=== PATIENT | male | born 1955 | race Caucasian/White ===

== ENCOUNTER 2022-11-04 12:01 | Emergency (ER) | payer MEDICARE, SELFPAY ==
[2022-11-04 12:04] VITALS: BP 156/91; PULSE 85; RESP 16; TEMP 36.7; O2SAT 98; BMI 19.6
--- NOTE | 2022-11-04 12:16 | XRR_ITS ---
PROCEDURE INFORMATION: Exam: XR Right Ribs with PA Chest Exam date and time: 11/04/2022 12:20 PM Age: 67 years old Clinical indication: Injury or trauma; Fall; Work related; Rib area; Blunt trauma (contusions or hematomas); Additional info: Right rib pain after fall TECHNIQUE: Imaging protocol: Radiologic exam of the Right ribs with PA chest. Views: 3 views COMPARISON: CR XR chest 2V* [id number] 12/25/2017 10:03 AM FINDINGS: Lungs: Unremarkable. No consolidation. Pleural spaces: Unremarkable. No pleural effusion. No pneumothorax. Heart/Mediastinum: Unremarkable. No cardiomegaly. Bones/joints: Unremarkable. XR/XR ribs RT mn 3V w CXR1V [id number] IMPRESSION: No acute findings.
--- NOTE | 2022-11-04 12:36 | W.ED.FALL ---
HPI - Fall General: Chief Complaint: Fall Stated Complaint: Slip and hurt his right side. Time Seen by Provider: 11/04/22 12:17 History of Present Illness: Patient is a 67-year-old male comes to the ED with right rib pain. Injury occurred 3 days ago. He stepped outside on his porch and went to walk down the steps and slipped on the snow. He fell back and landed on his right side. Since fall he has been having 10 out of 10 right-sided rib pain. He takes [id number] Aleve for pain. Denies any head trauma or loss of consciousness. Pain worsens with certain movements or when he takes a deep breath. Associated symptoms-after fall: Denies abdominal pain, chest pain, headache(s), hematuria or neck pain Review of Systems Const: Denies: fever(s), chills or fatigue Eyes: Denies: change in vision or eye discomfort ENMT: Denies: throat pain, odynophagia, nasal discharge or nasal congestion Card: Denies: chest pain, palpitations, edema, swelling of feet/ankles, dyspnea on exertion or orthopnea Resp: Denies: dyspnea, productive cough or non-productive cough GI: Denies: abdominal pain, nausea, vomiting, diarrhea, constipation or hematochezia : Denies: flank pain, difficulty urinating, dysuria or hematuria Musc: Reports: other (Right-sided rib pain); Denies: neck pain, back pain or extremity swelling Skin/Breast: Denies: rash or new lesions Neuro: Denies: headache(s), numbness in extremities or weakness in extremities [facility] ED PFSH: Medical History No pertinent family history Surgical History No pertinent past surgical history Physical Exam Const: COMMON NORMALS: patient oriented x3 and alert GENERAL APPEARANCE: cooperative HENMT: COMMON NORMALS: normocephalic HEAD & SCALP: normocephalic MOUTH: Normal oral and palatal mucosa present THROAT: posterior oropharynx normal and uvula midline Neck/C-Spine: COMMON NORMALS: supple GENERAL: Yes normal visual inspection Chest: CHEST: Yes tenderness rib right posterior-axillary line involving the 7th rib, involving the 8th rib and involving the 9th rib Resp: COMMON NORMALS: normal respiratory effort, No retractions, No use of accessory muscles and clear to auscultation bilaterally AUSCULTATION: clear to auscultation bilaterally Cardio: COMMON NORMALS: regular rate, regular rhythm, S1 normal heart sound present, S2 normal heart sound present, No gallops present (Cardio), No clicks present (Cardio), No murmurs present (Cardio) and Peripheral pulses 2+ throughout RATE: regular rate RHYTHM: regular rhythm HEART SOUNDS: S1 normal heart sound present and S2 normal heart sound present PERIPHERAL PULSES: Peripheral pulses 2+ throughout GI: COMMON NORMALS: Normal to inspection, nondistended, normoactive bowel sounds present, Soft to palpation, non-tender and no masses PALPATION: Yes Soft to palpation : COMMON NORMALS: Yes no CVA tenderness BLADDER/KIDNEY EXAM: Yes no CVA tenderness Back/Pelvis: COMMON NORMALS: no CVA tenderness Extremity: COMMON NORMALS: normal to inspection Neuro: COMMON NORMALS: patient oriented x3 SENSORIUM/ORIENTATION: Yes alert GAIT: Yes Normal gait present Skin: GENERAL SKIN EXAM: dry skin Course Vital Signs: Vital signs: Vital Signs Temperature 98.1 F 11/04/22 12:04 Pulse Rate 85 11/04/22 12:04 Respiratory Rate 16 11/04/22 12:04 Blood Pressure 156/91 11/04/22 12:04 Pulse Oximetry 98 11/04/22 12:04 Oxygen Delivery Me thod 11/04/22 12:04 MDM - Fall Medical Decision Making Patient is a 67-year-old male comes to the ED with right rib pain. Injury occurred 3 days ago. He stepped outside on his porch and went to walk down the steps and slipped on the snow. He fell back and landed on his right side. Since fall he has been having 10 out of 10 right-sided rib pain. He takes [id number] Aleve for pain. Denies any head trauma or loss of consciousness. Pain worsens with certain movements or when he takes a deep breath. Vitals are stable. Patient has some right posterior axillary line rib tenderness at ribs 7,8 and 9 rest of exam is benign. X-ray of right ribs showed no acute fractures or findings. Patient was given dose of hydrocodone to help with pain. He was diagnosed with right rib pain and was stable for discharge home. He was sent home with a prescription for muscle relaxer and some hydrocodone for acute pain. He was also sent home with incentive spirometer and told to use it multiple times every couple hours to help prevent pneumonia. Return to ED precautions given. Follow-up with PCP in the next week for reevaluation. Patient understood and agreed with plan. Lab Data Radiology Impressions Ribs X-Ray 11/04/22 12:16 IMPRESSION: No acute findings. Discharge Plan Discharge Patient Disposition: Home Clinical Impression: Rib pain on right side Condition: Stable Prescriptions: New methocarbamol 750 mg tablet 750 mg PO Q8H PRN (Reason: Muscle spasms and pain) Qty: 20 0RF Discharge Orders: Discharge ED (Routine); Ordered 11/04/22 Ordered By: Les Amaya Referrals: Vasquez Villa MD [Primary Care Provider] - Discharge Diet: Regular Discharge Activity: Increase activity as tolerated and Limit activity as instructed Patient Instructions: Rib Contusion (ED), Opioid Safety, Fractures - Rib Activity Restrictions/Additional Instructions: Follow-up with medical provider as directed in the next 5 to 7 days for reevaluation. Rest and apply cold pack on sore area ribs to help with symptoms. Limit any lifting or activity until cleared by primary care physician. Use incentive spirometer multiple times every couple hours to help prevent pneumonia. Take medications as prescribed. Return to the ER or your medical provider if condition worsens. Please read and understand discharge instructions. Thank you for choosing [facility] for your healthcare needs today. Please realize this is an emergency room and that we are providing you with a medical screening exam and this may not be complete and all inclusive of all the testing and or work up that you may need to determine your ailment or severity of your illness. It is very important that you follow up as instructed or that you return to the Emergency Department should you have concerns or if your condition changes or worsens in any way. Coding Level of Care Code ED Pararescue Manager for Evy Melton Exam Comprehensive
[2022-11-04] MEDS: HYDROcodone-acetaminophen 5-325 mg Tablet 1 TAB PO (12:57)
== END 2022-11-04 13:34 | disposition home or self-care (01) ==
PROVIDERS: Emergency Provider Physician Assistant; Family Provider Family Medicine; PCP Family Medicine
DX: R07.81 Pleurodynia (principal)
CPT/HCPCS: 71101; 99283

== ENCOUNTER 2023-07-31 17:26 | Emergency (ER) | payer MEDICARE, MEDICAID, SELFPAY ==
[2023-07-31 17:34] VITALS: BP 161/91; PULSE 71; RESP 16; TEMP 36.7; O2SAT 98; BMI 18.4
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
[2023-07-31] MEDS: ketorolac 60 mg/2 mL INJ IM (19:33)
--- NOTE | 2023-07-31 21:10 | PC.NURSE ---
This nurse offered to clean pt hand, pt refused.
[2023-07-31 21:11] VITALS: BP 146/87; PULSE 67; RESP 16; O2SAT 97
== END 2023-07-31 21:14 | disposition home or self-care (01) ==
PROVIDERS: Emergency Provider Emergency Medicine
DX: M54.2 Cervicalgia (principal); R07.89 Other chest pain; M79.602 Pain in left arm; V89.2XXA Person injured in unspecified motor-vehicle accident, traffic, initial encounter
CPT/HCPCS: 71046; 72040; 73110; 96372; 99284; J1885

== ENCOUNTER 2023-08-21 14:01 | Outpatient (CLI) | payer MEDICARE, MEDICAID, SELFPAY ==
--- NOTE | 2023-08-21 14:08 | XR_ITS ---
WS: [id number] Exam: XR shoulder LT min 2V* [id number] Date/Time of Exam: 08/21/2023 2:18 PM Reason For Exam: acute left shoulder pain No fracture or dislocation. Mild DJD at the AC joint. Normal soft tissues. Fractures of the anterior LEFT third and fourth ribs without significant displacement. The visualized LEFT lung is clear and fu lly expanded. Levoscoliosis of the visualized T-spine. IMPRESSION: 1. Mild AC joint DJD. 2. Fractures of the anterior LEFT third and fourth ribs without significant displacement.
--- NOTE | 2023-08-21 14:08 | XR_ITS ---
WS: [id number] Exam: XR hip LT 2-3V wo/w pel* [id number] Date/Time of Exam: 08/21/2023 2:18 PM Reason For Exam: acute left hip pain No fracture or dislocation. The joint is preserved. Normal soft tissues. IMPRESSION: 1. Negative LEFT hip.
== END 2023-08-21 14:02 | disposition home or self-care (01) ==
PROVIDERS: PCP Family Medicine; Visit Provider Family Medicine
DX: M19.012 Primary osteoarthritis, left shoulder (principal); G89.29 Other chronic pain; M25.552 Pain in left hip; S22.42XA Multiple fractures of ribs, left side, initial encounter for closed fracture; X58.XXXA Exposure to other specified factors, initial encounter
CPT/HCPCS: 73030; 73502

== ENCOUNTER 2023-08-25 16:51 | Outpatient (CLI) | payer MEDICARE, MEDICAID, SELFPAY ==
--- NOTE | 2023-08-25 17:00 | CT_ITS ---
WS: [id number] CT ABDOMEN PELVIS TECHNIQUE: Noncontrast CT of the abdomen and pelvis with coronal and sagittal reformatted images. CLINICAL INFORMATION: left flank pain COMPARISON: None. DLP: 238.[address] scans at [facility] use at least one of these dose optimization techniques: automated e xposure control; mA and/or kV adjustment per patient size (includes targeted exams where dose is matc hed to clinical indication); or iterative reconstruction. FINDINGS: Subsegmental atelectasis RIGHT middle lobe. Subsegmental atelectasis RIGHT lower lobe laterally. Adre nal glands are normal. No hydronephrosis in either kidney. Pelvic phleboliths. No obstructing renal o r ureteral calculi. Enlarged calcified prostate with thickening of the seminal vesicles. Nodular prostate measures 5.1 cm in maximum dimension. Recommend correlation PSA. Evidence of bladder outlet obstruction with bladder wall thickening. Sigmoid diverticulosis. No evidence of acute diverticulitis. Normal GE junction.Hepatomegaly. Normal noncontrast spleen. Normal caliber abdominal aorta. Aortic calcification. A few pancreatic calcificat ions can be seen with chronic pancreatitis. Pancreas not well evaluated on this noncontrast study. Ga llbladder is contracted. Normal caliber abdominal aorta. Mild aortic calcification. Tiny fat-containing umbilical hernia. Slig ht retrolisthesis L2 on L3. IMPRESSION: 1. No hydronephrosis in either kidney. No obstructing renal or ureteral calculi. 2. Markedly enlarged calcified prostate with bladder outlet obstruction with thickening of the semin al vesicles. Recommend correlation PSA. 3. Pancreatic calcifications can be seen with chronic pancreatitis. 4. Mild hepatomegaly. 5. Sigmoid diverticulosis. 6. No other acute findings.
== END 2023-08-25 16:52 | disposition home or self-care (01) ==
PROVIDERS: PCP Family Medicine; Visit Provider Family Medicine
DX: R10.32 Left lower quadrant pain (principal); N32.0 Bladder-neck obstruction; K86.89 Other specified diseases of pancreas; N42.89 Other specified disorders of prostate; R16.0 Hepatomegaly, not elsewhere classified; K57.30 Diverticulosis of large intestine without perforation or abscess without bleeding
CPT/HCPCS: 74176

== ENCOUNTER → 2023-09-05 09:22 | Outpatient (BNVA) | payer MEDICARE, MEDICAID, SELFPAY | PROVIDERS: PCP Family Medicine; Visit Provider Family Medicine | DX: Z13.6 Encounter for screening for cardiovascular disorders (principal); Z12.5 Encounter for screening for malignant neoplasm of prostate | CPT/HCPCS: 80053; 80061; 85025; G0103 ==

== ENCOUNTER 2024-10-07 10:00 | Outpatient (CLI) | payer MEDICARE, MEDICAID, SELFPAY ==
--- NOTE | 2024-10-07 10:00 | CT_ITS ---
WS: [id number] LDCT LUNG CANCER SCREENING HISTORY: screening TECHNIQUE: Axial imaging performed from the apices to 1 cm below the costophrenic angles. Coronal and sagittal reformats are submitted with axial MIP series. All CT scans at [facility] use at least one of these dose optimization techniques: automated exposure control; mA and/or kV adjustment per patient size (includes targeted exams where dose is matched to clinical indication); or iterativ e reconstruction. DLP: 45.69 mGy.cm DIvol: Mean CTDIvol: 0.70 (mGy) COMPARISON: None available. Diagnostic quality: Satisfactory Lungs: Biapical pleural thickening and fibrosis. Tiny micronodules bilaterally. No suspicious nodule or mass. No endobronchial lesions. Heart: Normal size heart with no pericardial effusion.. Other findings: Mild atherosclerosis aorta. Normal size pulmonary artery. No mediastinal or hilar lym ph nodes. Hilar lymph nodes are difficult to evaluate without IV contrast. No adrenal mass. Mild supr a renal aortic calcifications. CT/CT lung screening [id number] IMPRESSION: LUNG-RADS: 2-Benign Appearance or Behavior FOLLOW UP: 12 Month: Continue annual screening with LDCT OTHER FINDINGS (S MODIFIER): None.
== END 2024-10-07 10:10 | disposition home or self-care (01) ==
PROVIDERS: PCP Family Medicine; Visit Provider Family Medicine
DX: Z12.2 Encounter for screening for malignant neoplasm of respiratory organs (principal); F17.219 Nicotine dependence, cigarettes, with unspecified nicotine-induced disorders; J92.9 Pleural plaque without asbestos; J84.10 Pulmonary fibrosis, unspecified; I70.0 Atherosclerosis of aorta
CPT/HCPCS: 71271